=== PATIENT | male | born 1975 | race Hispanic/Latino ===

== ENCOUNTER 2021-04-19 17:14 | Emergency (ER) | payer SELFPAY ==
[~2021-04-19] VITALS: Ht 170.2 cm; Wt 64.0 kg
[~2021-04-19 17:14] MED LIST: BACTRIM DS1 TAB PO; CEPHALEXIN500 MG OR; KEFLEX500 MG PO; LORTAB5 PO; NAPROSYN500 MG PO
[2021-04-19] MEDS ORDERED: BACTRIM DS1 TAB PO (19:58)
[2021-04-19] MEDS ORDERED: KEFLEX500 MG PO (19:58)
[2021-04-19 20:53] VITALS: BP 104/74
[2021-04-20] MEDS ORDERED: LORTAB 1010 MG PO (23:45)
== END 2021-04-19 20:52 | disposition home or self-care (01) | DRG 603 ==
LOC: ED 17:14
PROC: 0H9HXZZ Drainage of Right Upper Leg Skin, External Approach (ICD-10-PCS; principal; 2021-04-19)
DX: L02.415 Cutaneous abscess of right lower limb (principal); F17.210 Nicotine dependence, cigarettes, uncomplicated; B95.62 Methicillin resistant Staphylococcus aureus infection as the cause of diseases classified elsewhere

== ENCOUNTER 2021-04-20 17:16 | Emergency (ER) | payer SELFPAY ==
[2021-04-20] MEDS ORDERED: LORTAB 1010 MG PO (23:45)
== END 2021-04-20 18:47 | disposition left against medical advice (07) | DRG 951 ==
LOC: ED 17:16 → LWOBS 18:16
DX: Z53.21 Procedure and treatment not carried out due to patient leaving prior to being seen by health care provider (principal)

== ENCOUNTER 2021-04-20 22:58 | Emergency (ER) | payer SELFPAY ==
[~2021-04-20] VITALS: Ht 170.2 cm; Wt 70.5 kg
[2021-04-20] MEDS ORDERED: LORTAB 1010 MG PO (23:45)
[2021-04-20 23:55] VITALS: BP 128/78
== END 2021-04-20 23:55 | disposition home or self-care (01) | DRG 951 ==
LOC: ED 22:58
DX: Z48.01 Encounter for change or removal of surgical wound dressing (principal); F17.200 Nicotine dependence, unspecified, uncomplicated

== ENCOUNTER 2021-04-22 14:27 | Emergency (ER) | payer SELFPAY ==
[~2021-04-22] VITALS: Ht 170.2 cm; Wt 70.4 kg
[~2021-04-22 14:27] MED LIST changes: +LORTAB 1010 MG PO
[2021-04-22 15:35] VITALS: BP 131/77
== END 2021-04-22 15:40 | disposition home or self-care (01) | DRG 951 ==
LOC: ED 14:27
DX: Z48.01 Encounter for change or removal of surgical wound dressing (principal); F17.200 Nicotine dependence, unspecified, uncomplicated